=== PATIENT | female | born 1960 | race Caucasian/White ===

== ENCOUNTER → 2021-11-12 | Outpatient (CLI) | payer BC ==
[~2021-11-12] MED LIST: CIPRO500 MG PO; CLARITIN10 MG PO; LISINOPRIL5 MG PO; LOVAZA1 GM PO; MIRALAX17 GM PO; NAPROXEN250 MG PO; NORCO 7.5-3251 EACH PO
== END ==
LOC: EXRD 07:59
DX: I10 Essential (primary) hypertension (principal); N28.1 Cyst of kidney, acquired
CPT/HCPCS: 93975